=== PATIENT | female | born 1985 | race Caucasian/White ===

== ENCOUNTER 2017-01-20 15:03 | Emergency (ER) | payer OTHER ==
[~2017-01-20] VITALS: Ht 167.6 cm; Wt 89.0 kg
[~2017-01-20 15:03] MED LIST: CHROMAGEN,1 CAPSULE PO; DEPO-PROVER150 MG/ML IM; DOXYCYCLINE HY100 MG PO; FLINTSTONES1 TABLET PO; Flintstones PO; MOTRIN800 MG PO; MUPIROCIN22 GM TP; Motrin PO; PREDNISONE20 MG PO; XANAX0.5 MG PO
[2017-01-20] MEDS ORDERED: NUVARING VAGIN1 EACH VG (15:10)
[2017-01-20 15:41] LABS: POINT-OF-CARE METER ID UU13113702
[2017-01-20 16:06] LABS: HEMATOCRIT 40.5 % (36.0-46.0); MCH 30.2 PG (29.0-34.0); MCHC 33.1 G/DL (30.0-36.0); MCV 91.2 FL (83-99); PLATELET COUNT 216 K/uL (156-360); RBC DIS.WIDTH-CV 12.3 % (11.8-14.6); RBC DIS.WIDTH-SD 40.5 % (39-53); RED BLOOD COUNT 4.44 M/uL (3.80-5.20); WHITE BLOOD COUNT 5.4 K/uL (4.1-10.2)
[2017-01-20 16:14] LABS: CHLORIDE 107 mEq/L (99-109); POTASSIUM 3.9 mEq/L (3.7-5.4); SODIUM 142 mEq/L (136-147)
[2017-01-20 16:15] LABS: GLUCOSE 94 mg/dL (70-99)
[2017-01-20 16:17] LABS: ANION GAP 10 MEQ/L (2-14)
[2017-01-20 16:19] LABS: GFR ESTIMATE (CALCULATED) > 59 mL/min/
[2017-01-20 16:20] LABS: UREA NITROGEN (BUN) 8 mg/dL (9-23)
[2017-01-20 18:42] LABS: POINT-OF-CARE METER ID UU13113702
[2017-01-20 19:18] VITALS: BP 103/61
== END 2017-01-20 19:30 | disposition home or self-care (01) ==
LOC: EME 15:03
PROVIDERS: Emergency Medicine
DX: E16.2 Hypoglycemia, unspecified (principal); R42 Dizziness and giddiness; R51 Headache; Z86.32 Personal history of gestational diabetes
CPT/HCPCS: 80048; 82948; 85027; 93005; 99281; 99285

== ENCOUNTER 2017-12-25 19:31 | Emergency (ER) | payer OTHER ==
[~2017-12-25] VITALS: Ht 167.6 cm; Wt 96.5 kg
[~2017-12-25 19:31] MED LIST changes: +NUVARING VAGIN1 EACH VG
[2017-12-25 23:23] VITALS: BP 120/92
== END 2017-12-25 23:23 | disposition home or self-care (01) ==
LOC: EME 19:31
DX: M79.605 Pain in left leg (principal); Z91.040 Latex allergy status; Z88.2 Allergy status to sulfonamides; Z88.5 Allergy status to narcotic agent; Z88.1 Allergy status to other antibiotic agents
CPT/HCPCS: 73564; 93971; 99281; 99283